=== PATIENT | male | born 1970 | race Caucasian/White ===

== ENCOUNTER 2016-11-01 21:10 | Emergency (ER) | payer OTHER | END 2016-11-02 00:19 | disposition home or self-care (01) | LOC: ER 21:10 | DX: S22.31XA Fracture of one rib, right side, initial encounter for closed fracture (principal); R51 Headache; W19.XXXA Unspecified fall, initial encounter | CPT/HCPCS: 70450; 71101; 96372; 99284; J1170; J2405 ==